=== PATIENT | female | born 1990 | race Caucasian/White ===

== ENCOUNTER 2024-09-02 10:31 | Outpatient (CLI) | payer OTHER, SELFPAY ==
--- NOTE | 2024-09-02 06:00 | DI.RAD_ITS ---
Exam(s) XR PAIN CLINIC LUMBAR SP 2V EXAM: XR PAIN CLINIC LUMBAR SP 2V CLINICAL HISTORY: DX: Lumbar Radiculopathy. TECHNIQUE: Fluoroscopy was provided for the referring physician for guidance with performing pain cl inic injection procedure. COMPARISON: No exams were available for comparison FINDINGS: Please see procedure note for details. Fluoro time: 67.6 seconds RADIATION DOSE DELIVERED: Ka,r=54.2 mGy
[2024-09-02 10:42] VITALS: BP 142/97; PULSE 75; RESP 20; TEMP 36.6; O2SAT 100
[2024-09-02 11:16] VITALS: PULSE 73; PULSE 74; RESP 12; O2SAT 100
[2024-09-02 11:17] VITALS: BP 146/98; PULSE 74; PULSE 78; RESP 15; O2SAT 100
[2024-09-02 11:20] VITALS: PULSE 93; RESP 17; O2SAT 100
[2024-09-02 11:30] VITALS: PULSE 90; RESP 20; O2SAT 100
[2024-09-02 11:31] VITALS: BP 136/98; PULSE 85; PULSE 89; RESP 20; O2SAT 100
[2024-09-02] MEDS: methylPREDNISolone ACETATE 80 MG/ML VIAL IJ (11:45)
[2024-09-02] MEDS: Omnipaque 240 MG/ML 50 ML BTL IJ (11:45)
--- NOTE | 2024-09-02 11:49 | PDOC.PAIN_ITS ---
Date of service: 09/02/24 Time of Service: 11:49 Pain Managment Procedure Note Procedure Note Procedure Note: PROCEDURE NOTE LUMBAR EPIDURAL STEROID INJECTION Date of Service: September 02, 2024 Patient:Renetta Veloz? Provider: Acosta Venegas DO, MPH Renetta Hart has been referred to [facility] for a lumbar epidural steroid injection. Pre-operative diagnosis: Lumbosacral Radiculopathy ICD-10 M54.16 Post-operative diagnosis: Same Pre-Procedure Pain: VAS= 8 /10 Comments: I previously evaluated her in the office. I started this procedure using the caudal approach. I could not access the sacral hiatus and determine that the L5-S1 interspace was free of scar and, with her consent, transitioned the procedure to an interlaminar epidural steroid injection at L5-S1. Renetta Jean Baptiste was interviewed and the medical record was reviewed.? There were no medical, pharmacologic, radiographic or other structural contraindications to attempting fluoroscopically guided Lumbar epidural steroid injection.? Risks, potential side effects, indications, and potential benefits of the procedure were reviewed with Renetta Jean Baptiste.? Questions and concerns were addressed.? After it was clear that Renetta Jean Baptiste was fully informed about the procedure, the printed consent form was signed by the patient and myself.? Renetta Jean Baptiste was placed in the prone position on the fluoroscopy table and automated blood pressure cuff and pulse oximeter applied. The skin entry point for entering/approaching the epidural space for the lumbar epidural steroid injection was marked. Following thorough chlorhexadine preparation of the skin and draping and 1% lidocaine infiltration of the skin entry point and subcutaneous tissues, an 18 gauge 5 Touhy needle was placed and advanced under fluoroscopic guidance and with loss of resistance technique into the L5-S1 epidural space. Needle tip placement and depth were aided and confirmed by fluoroscopy. There was no paresthesia or return of blood or CSF through the needle. 1 mls of Omnipaque 240 was injected with clear epidural spread confirmed with fluoroscopy. 80 mg of Depo-Medrol was? injected. This was followed by 1 ml of preservative-free normal saline to flush the steroid out of the needle. There was no unusual discomfort expressed by Renetta Jean Baptiste. The needle was withdrawn without difficulty. (49 mls of Omnipaque was wasted) Renetta Jean Baptiste was observed and was without hemodynamic, neurologic, or allergic reactions.? Fluoroscopic images were digitally archived. Renetta Jean Baptiste's vital signs were stable throughout the procedure and were as recorded in nursing records. Follow up plans and appointments were discussed with Renetta Jean Baptiste. Post procedure instruction was given as documented in nursing records and having met discharge criteria Renetta Jean Baptiste was [facility]. COMMENTS: No apparent complications. Post-procedure pain: VAS= 2/10. Renetta Jean Baptiste to contact [facility] as needed. If at least 50% improvement in pain and/or function for at least 3 months is achieved, this procedure can be repeated. I personally performed this entire procedure. ACOSTA VENEGAS DO, MPH ABPMR-subspecialty board certification in Pain Medicine [facility]
== END 2024-09-02 10:32 | disposition home or self-care (01) ==
LOC: PC 10:34
PROVIDERS: PCP Nurse Practitioner Family; Visit Provider Preventive Medicine Occupational Medicine
DX: M54.16 Radiculopathy, lumbar region (principal)
CPT/HCPCS: 62323; 72100; J1010; Q9967